=== PATIENT | female | born 1955 | race Caucasian/White ===

== ENCOUNTER 2018-02-22 05:16 | Emergency (ER) | payer OTHER ==
--- NOTE | 2018-02-22 05:32 | ED Physician Documentation ---
PD HPI CHEST PAIN - Stated complaint Stated Complaint: CHEST PAIN - Chief complaint Chief Complaint: Cardiac - History obtained from History obtained from: Patient - History of Present Illness Timing - onset: Last night Timing - onset during: Light activity Timing - details: Abrupt onset, Intermittant, Waxing and waning Quality: Pressure ("heaviness" (per patient)) Location: Substernal Radiation: Other (left chest and shoulder) Improved by: Nothing Worsened by: Other (no exacerbating fators for chest pain, dizziness worse with standing, ambulating) Associated symptoms: Shortness of air (mild) Similar symptoms before: Has not had sx before Recently seen: Not recently seen - Additional information Additional information: c/o nonproductive cough x 4-5 weeks. Last night, she had chest heaviness and dizziness with mild dyspnea. This improved but recurred this morning. Had stress test approximately 4-5 years ago, patient says results were reassuring. Review of Systems Constitutional: reports: Reviewed and negative Cardiac: reports: Chest pain / pressure. denies: Palpitations, Pedal edema Respiratory: reports: Dyspnea (mild, intermittent), Cough. 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 - Past Surgical History Past Surgical History: Yes General: Other - Allergies Allergies/Adverse Reactions: Allergies Allergy/AdvReac Type Severity Reaction Status Date / Time Iodinated Contrast- Oral and AdvReac Rash Verified 02/22/18 05:25 IV Dye metoclopramide [From Reglan] AdvReac Unknown Verified 02/22/18 05:25 - Social History Does the pt smoke?: No Smoking Status: Never smoker Does the pt drink ETOH?: Yes Does the pt have substance abuse?: No - Immunizations Immunizations are current?: Yes - POLST Patient has POLST: No PD ED PE NORMAL - Vitals Vital signs reviewed: Yes - General General: Alert and oriented X 3, No acute distress, Well developed/nourished - HEENT HEENT: Moist mucous membranes - Neck Neck: Supple, no meningeal sign - Cardiac Cardiac: RRR, No murmur, No gallop, No rub - Respiratory Respiratory: No respiratory distress, Clear bilaterally - Abdomen Abdomen: Soft, Non tender - Derm Derm: Normal color, Warm and dry - Extremities Extremities: No edema Results - Vitals Vitals: Vital Signs - 24 hr 02/22/18 02/22/18 02/22/18 05:18 05:32 06:10 Temperature 36.5 C Heart Rate 86 61 62 Respiratory 18 16 18 Rate Blood Pressure 185/91 H 146/70 H 141/70 H O2 Saturation 99 100 98 02/22/18 02/22/18 02/22/18 06:48 07:20 08:30 Temperature Heart Rate 60 60 59 L Respiratory 17 14 14 Rate Blood Pressure 137/74 H 142/72 H 130/78 O2 Saturation 97 97 97 Oxygen O2 Source Room air - EKG (time done) No standard instances Rate: Rate (enter#) (64) Rhythm: NSR [place]: LAD Intervals: Normal DC QRS: LVH Ischemia: Normal ST segments - Labs Labs: Laboratory Tests 02/22/18 02/22/18 02/22/18 05:30 05:30 05:30 WBC 10.9 H RBC 4.43 Hgb 14.1 Hct 40.5 MCV 91.5 MCH 31.9 H MCHC 34.9 RDW 12.7 Plt Count 250 MPV 8.3 Neut # (Auto) 5.8 Lymph # (Auto) 4.1 H Da[place]hin # (Auto) 0.7 Eos # (Auto) 0.2 Baso # (Auto) 0.1 Absolute Nucleated RBC 0.00 Nucleated RBC % 0.0 Sodium 138 Potassium 4.1 Chloride 104 Carbon Dioxide 23 Anion Gap 11.0 BUN 22 H Creatinine 0.8 Estimated GFR (MDRD) 72 L Glucose 225 H Calcium 9.1 Troponin I < 0.04 - Rads (name of study) chest xray Radiology: Prelim report reviewed, See rad report PD MEDICAL DECISION MAKING - ED course Complexity details: reviewed results, re-evaluated patient, considered differential, d/w patient Departure - Departure Disposition: 01 Home, Self Care Clinical Impression: Chest pain Condition: Good Instructions: ED Chest Pain Atypical Unkn Cause Forms: Activity restrictions Discharge Date/Time: 02/22/18 09:00
[2018-02-22 06:01] LABS: BASOPHILS # (AUTO) 0.1 10^3/uL (0.0-0.1); EOSINOPHILS # (AUTO) 0.2 10^3/uL (0.0-0.7); EOSINOPHILS % (AUTO) 1.7 %; HGB - HEMOGLOBIN 14.1 g/dL (12.0-16.0); LYMPHOCYTES # (AUTO) 4.1 10^3/uL (1.5-3.5); LYMPHOCYTES % (AUTO) 37.9 %; MEAN CORPUSCULAR HEMOGLOBIN 31.9 pg (27.0-31.0); MEAN CORPUSCULAR HGB CONC 34.9 g/dL (32.0-36.0); MEAN CORPUSCULAR VOLUME 91.5 fL (81.0-99.0); MEAN PLATELET VOLUME 8.3 fL (7.9-10.8); MONOCYTES # (AUTO) 0.7 10^3/uL (0.0-1.0); MONOCYTES % (AUTO) 6.1 %; NEUTROPHILS # (AUTO) 5.8 10^3/uL (1.5-6.6); NEUTROPHILS % (AUTO) 53.3 %; PLT - PLATELET COUNT 250 10^3/uL (130-450); RED BLOOD COUNT 4.43 10^6/uL (4.20-5.40); RED CELL DISTRIBUTION WIDTH 12.7 % (12.0-15.0); WHITE BLOOD COUNT 10.9 x10^3/uL (4.8-10.8)
[2018-02-22 06:05] LABS: CALCIUM 9.1 mg/dL (8.5-10.3); CREATININE 0.8 mg/dL (0.4-1.0)
--- NOTE | 2018-02-22 06:13 | XRAY Report ---
Reason: chest pain Procedure Date: 02/22/2018 Accession Number: [id number] / [id number] Procedure: XR - Chest 2 View X-Ray CPT Code: 41329 FULL RESULT: EXAM: CHEST RADIOGRAPHY EXAM DATE: 02/22/2018 05:53 AM. CLINICAL HISTORY: Chest pain. COMPARISON: None. TECHNIQUE: 2 views. FINDINGS: Lungs/Pleura: No focal opacities evident. No pleural effusion. No pneumothorax. Normal volumes. Mediastinum: Heart and mediastinal contours are unremarkable. Other: Left subclavian dual-chamber pacemaker. IMPRESSION: No evidence of acute cardiopulmonary disease. RADIA
[2018-02-22 09:21] VITALS: BP 130/78
== END 2018-02-22 09:00 | disposition home or self-care (01) ==
LOC: ED 05:16
DX: R07.9 Chest pain, unspecified (principal); I51.7 Cardiomegaly; I10 Essential (primary) hypertension; E11.9 Type 2 diabetes mellitus without complications
CPT/HCPCS: 36415; 71046; 80048; 84484; 85025; 93005; 99283; 99284

== ENCOUNTER 2018-03-20 19:48 | Emergency (ER) | payer OTHER ==
--- NOTE | 2018-03-20 19:59 | ED Physician Documentation ---
History of Present Illness - Stated complaint Stated Complaint: GLF - Chief complaint Chief Complaint: Trauma Hd/Nk - History obtained from History obtained from: Patient - History of Present Illness Timing: Prior to arrival Pain level max: 5 Pain level now: 4 Severity Comments: mild Quality: dull Radiates to: none Improved by: nothing Worsened by: nothing Associated symptoms: headache, left wrist pain, left knee pain - Additonal information Additional information: 62-year-old female was on her way to work when she sustained a ground-level fall onto concrete hitting her bridge of nose, left wrist, left knee. Unsure about loss of consciousness. Review of Systems Ten Systems: 10 systems reviewed and negative Constitutional: reports: Reviewed and negative Eyes: reports: Reviewed and negative Ears: reports: Reviewed and negative Nose: reports: Reviewed and negative Throat: reports: Reviewed and negative Cardiac: reports: Reviewed and negative Respiratory: reports: Reviewed and negative GI: reports: Reviewed and negative : reports: Reviewed and negative Skin: reports: Reviewed and negative Musculoskeletal: reports: Reviewed and negative Neurologic: reports: Reviewed and negative Psychiatric: reports: Reviewed and negative Endocrine: reports: Reviewed and negative Immunocompromised: reports: Reviewed and negative PD PAST MEDICAL HISTORY - Past Medical History Cardiovascular: Hypertension, Other Respiratory: None Neuro: None Endocrine/Autoimmune: Type 2 diabetes 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 : None HEENT: None Psych: None Musculoskeletal: None Derm: None Other Past Medical History: Reviewed and not pertinent - Past Surgical History Past Surgical History: Yes General: Other Other past surgical history: Reviewed and not pertinent - Allergies Allergies/Adverse Reactions: Allergies Allergy/AdvReac Type Severity Reaction Status Date / Time Iodinated Contrast- Oral and AdvReac Rash Verified 03/20/18 19:56 IV Dye metoclopramide [From Reglan] AdvReac Unknown Verified 03/20/18 19:56 - Living Situation Living Situation: reports: Alone Living Arrangement: reports: At home - Social History Does the pt smoke?: No Smoking Status: Never smoker Does the pt drink ETOH?: Yes Does the pt have substance abuse?: No - Family History Family history: reports: Other (Reviewed and not pertinent) - Immunizations Immunizations are current?: Yes - POLST Patient has POLST: No PD ED PE NORMAL - Vitals Vital signs reviewed: Yes - General General: Alert and oriented X 3, No acute distress - HEENT HEENT: PERRL, Other (Abrasion on bridge of nose, dried blood in the nasopharynx, no nasal septal hematoma.) - Neck Neck: Supple, no meningeal sign - Cardiac Cardiac: RRR, No murmur - Respiratory Respiratory: Clear bilaterally - Abdomen Abdomen: Normal bowel sounds, Soft, Non tender, Non distended - Derm Derm: Warm and dry - Extremities Extremities: No deformity, Other (Left wrist and left knee tenderness.) - Neuro Neuro: Alert and oriented X 3 - Psych Psych: Normal mood, Normal affect Results - Vitals Vitals: Vital Signs - 24 hr 03/20/18 19:52 Temperature 35.5 C L Heart Rate 70 Respiratory 20 Rate Blood Pressure 187/81 H O2 Saturation 98 Oxygen O2 Source Room air - Rads (name of study) CT Face Radiology: Final report received (Comminuted nasal fracture) CT Head Radiology: Final report received (WNL) CT Cervical Spine Radiology: Final report received (Degenerative changes) Left wrist XRAY Radiology: Final report received (WNL) Left Knee Radiology: Final report received (WNL) Procedures - Laceration (location) Face Wound type: Stellate Neurovascular status: Sensory intact Tendon involvement: Tendon intact Wound Preparation: Irrigated copiously NS Skin layer closure: Dermabond Other: Patient tolerated well Complexity: Simple PD MEDICAL DECISION MAKING - ED course ED course: 62-year-old female with ground-level fall. Facial CT shows comminuted nasal fracture. Head and neck CT unremarkable. X-ray of the left wrist and left knee unremarkable. Patient discharged with concussion precautions. Dermabond applied to the abrasion over the bridge of the nose. Departure - Departure Disposition: 01 Home, Self Care Clinical Impression: Closed head injury Qualifiers: Encounter type: initial encounter Qualified Code(s): S09.90XA - Unspecified injury of head, initial encounter Nasal bone fracture Qualifiers: Encounter type: initial encounter Fracture type: closed Qualified Code(s): S02.2XXA - Fracture of nasal bones, initial encounter for closed fracture Left wrist sprain Qualifiers: Encounter type: initial encounter Qualified Code(s): S63.502A - Unspecified sprain of left wrist, initial encounter Left knee sprain Qualifiers: Encounter type: initial encounter Involved ligament of knee: unspecified ligament Qualified Code(s): S83.92XA - Sprain of unspecified site of left knee, initial encounter Facial abrasion Qualifiers: Encounter type: initial encounter Qualified Code(s): S00.81XA - Abrasion of other part of head, initial encounter Instructions: ED Head Injury Closed Ch, ED Knee Pain UKO, ED Sprain Wrist Follow-Up: Your, PCP [Other] Comments: Follow-up with PCP within 24 hours. Return with worsening symptoms. Take Tylenol and ibuprofen as needed for pain.
[2018-03-20] MEDS ORDERED: ACETAMINOPHEN 500 MG TABLET PO STA (20:10)
[2018-03-20 20:19] VITALS: BP 187/81
--- NOTE | 2018-03-20 20:54 | CT Report ---
Reason: Fall w pain Procedure Date: 03/20/2018 Accession Number: [id number] / [id number] Procedure: CT - Head W/O CPT Code: FULL RESULT: EXAM: CT HEAD EXAM DATE: 03/20/2018 08:18 PM. CLINICAL HISTORY: Fall with pain. COMPARISON: None. TECHNIQUE: Multiaxial CT images were obtained from the foramen magnum to the vertex. Reformats: Sagittal and coronal. IV contrast: None. In accordance with CT protocol optimization, one or more of the following dose reduction techniques were utilized for this exam: automated exposure control, adjustment of mA and/or KV based on patient size, or use of iterative reconstructive technique. FINDINGS: Parenchyma: No intraparenchymal hemorrhage. No evidence of mass, midline shift, or CT findings of infarction. Armstrong-white differentiation is distinct. Physiologic calcification seen in the bilateral basal ganglia. Extraaxial Spaces: Normal for age. No subdural or epidural collections identified. Ventricles: Normal in size and position. Bones: No evidence for skull fracture. IMPRESSION: No acute intracranial abnormality seen. RADIA
--- NOTE | 2018-03-20 21:01 | CT Report ---
Reason: Fall w pain Procedure Date: 03/20/2018 Accession Number: [id number] / [id number] Procedure: CT - Facial Bones W/O CPT Code: FULL RESULT: EXAM: CT MAXILLOFACIAL WITHOUT CONTRAST EXAM DATE: 03/20/2018 08:43 PM. CLINICAL HISTORY: Fall with pain. COMPARISONS: None. TECHNIQUE: Thin-section axial images were acquired of the face without contrast. Post-processing: Coronal and sagittal reformats. Other: None. In accordance with CT protocol optimization, one or more of the following dose reduction techniques were utilized for this exam: automated exposure control, adjustment of mA and/or KV based on patient size, or use of iterative reconstructive technique. FINDINGS: Acute comminuted nasal bone fracture at the bilateral nasal alar bones, mildly displaced, and across the bridge. Left nasal alar bone fractures are mildly displaced and angled to the left. Overlying soft tissue swelling. No acute orbital findings. Mild left maxillary sinus mucosal thickening. Minimal right maxillary sinus mucosal thickening. IMPRESSION: 1. Acute nasal bone comminuted fracture. See above. RADIA
--- NOTE | 2018-03-20 21:03 | CT Report ---
Reason: Fall w pain Procedure Date: 03/20/2018 Accession Number: [id number] / [id number] Procedure: CT - Cervical Spine W/O CPT Code: FULL RESULT: EXAM: CT CERVICAL SPINE WITHOUT CONTRAST DATE: 03/20/2018 08:44 PM. HISTORY: Fall with pain. COMPARISONS: None. TECHNIQUE: Thin-section axial images were acquired of the cervical spine without contrast. Post-processing: Coronal and sagittal reformats. Other: None. In accordance with CT protocol optimization, one or more of the following dose reduction techniques were utilized for this exam: automated exposure control, adjustment of mA and/or KV based on patient size, or use of iterative reconstructive technique. 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 No evidence for acute fracture. Mild to moderate degenerative disk disease more moderate at the mid and lower levels. Mild diffuse bilateral facet arthropathy. Minimal anterolisthesis of T1 on T2 most likely degenerative. No acute soft tissue findings. IMPRESSION: 1. No evidence for acute fracture. 2. Degenerative changes. See above. RADIA
--- NOTE | 2018-03-20 21:13 | XRAY Report ---
Reason: Fall w pain Procedure Date: 03/20/2018 Accession Number: [id number] / [id number] Procedure: XR - Wrist 4 View LT CPT Code: FULL RESULT: EXAM: LEFT WRIST RADIOGRAPHY. EXAM DATE: 03/20/2018 08:18 PM. CLINICAL HISTORY: Fall with pain. COMPARISON: None. TECHNIQUE: 4 views. FINDINGS: Bones: Normal. No fractures or bone lesions. Joints: Normal. No subluxations. Soft Tissues: Normal. No soft tissue swelling. IMPRESSION: Normal wrist radiography. RADIA
--- NOTE | 2018-03-20 21:14 | XRAY Report ---
Reason: Fall w pain Procedure Date: 03/20/2018 Accession Number: [id number] / [id number] Procedure: XR - Knee 4 View LT CPT Code: FULL RESULT: EXAM: LEFT KNEE RADIOGRAPHY EXAM DATE: 03/20/2018 08:19 PM. CLINICAL HISTORY: Fall with pain. COMPARISON: None. TECHNIQUE: 4 views. FINDINGS: Bones: Normal. No fractures or bone lesions. Joints: Normal. No effusion. No subluxations. Soft Tissues: Normal. No soft tissue swelling. IMPRESSION: Normal knee radiography. RADIA
== END 2018-03-20 22:05 | disposition home or self-care (01) ==
LOC: ED 19:48
DX: S09.90XA Unspecified injury of head, initial encounter (principal); S02.2XXA Fracture of nasal bones, initial encounter for closed fracture; S63.502A Unspecified sprain of left wrist, initial encounter; S83.92XA Sprain of unspecified site of left knee, initial encounter; S00.81XA Abrasion of other part of head, initial encounter; W18.30XA Fall on same level, unspecified, initial encounter; Y92.481 Parking lot as the place of occurrence of the external cause; Y92.238 Other place in hospital as the place of occurrence of the external cause; I10 Essential (primary) hypertension; E11.9 Type 2 diabetes mellitus without complications
CPT/HCPCS: 12011; 70450; 70486; 72125; 73110; 73564; 99283; A9270